=== PATIENT | male | born 1960 | race African-American/Black ===

== ENCOUNTER 2022-01-04 14:06 | Outpatient (CLI) | payer OTHER | END 2022-01-04 14:07 | disposition home or self-care (01) | LOC: MADRAD 14:06 | PROVIDERS: ATTEND Registered Nurse | DX: M25.532 Pain in left wrist (principal); M19.032 Primary osteoarthritis, left wrist ==

== ENCOUNTER 2023-03-21 12:03 | Outpatient (CLI) | payer OTHER | END 2023-03-21 12:04 | disposition home or self-care (01) | LOC: MADRAD 12:03 | PROVIDERS: ATTEND Physician Assistant | DX: M25.572 Pain in left ankle and joints of left foot (principal) ==